=== PATIENT | female | born 1940 | race Caucasian/White ===

== ENCOUNTER 2020-03-20 12:36 | Emergency (ER) | payer MEDICARE ==
[~2020-03-20] VITALS: Ht 165.1 cm; Wt 63.6 kg
--- NOTE | 2020-03-20 13:01 | NUR ---
EARLINE [phone]
[2020-03-20 16:30] LABS: BASOPHILS % (AUTO) 0.3 % (0-1); EOSINOPHILS % (AUTO) 0 % (0-6); HEMATOCRIT 35.6 % (35.0-45.0); HEMOGLOBIN 11.6 g/dl (12.0-16.0); LYMPHOCYTES # (AUTO) 0.4 X10'3 (1.1-4.8); LYMPHOCYTES % (AUTO) 5.3 % (21-51); MEAN CORPUSCULAR HEMOGLOBIN 27.8 PG (27.0-31.0); MEAN CORPUSCULAR HGB CONC 32.6 g/dL (33.0-36.5); MEAN CORPUSCULAR VOLUME 85.3 FL (78-98); MEAN PLATELET VOLUME 7.5 FL (7.4-10.4); MONOCYTES # (AUTO) 0.2 X10'3 (0-0.9); MONOCYTES % (AUTO) 3.1 % (2-12); NEUTROPHILS # (AUTO) 6.6 X10'3 (1.8-7.7); NEUTROPHILS % (AUTO) 91.3 % (42-75); PLATELET COUNT 258 X10'3 (140-440); RED BLOOD COUNT 4.18 X10'6 (4.20-5.60); WHITE BLOOD COUNT 7.3 X10'3 (4.5-11.0)
[2020-03-20] MEDS ORDERED: TETanus/Pertussis (Acell)/Diphther VAC/PF (Tdap-Adult) 0.5ml syringe IMVAC ONE (16:35)
[2020-03-20] MEDS ORDERED: bacitracin 15gm ointment TP ONE (16:35)
[2020-03-20] MEDS ORDERED: LIDOcaine 1% W/epiNEPHrine 1:200,000 10ml vial IJ ONE (16:35)
[2020-03-20 16:52] LABS: CLARITY,URINE SLIGHTLY CLOUDY (Clear); COLOR,URINE YELLOW (Yellow); GLUCOSE, URINE NEGATIVE (Neg); KETONES,URINE NEGATIVE (Neg); LEUKOCYTE ESTERASE ,URINE NEGATIVE (Neg); NITRITES, URINE NEGATIVE (Neg); OCCULT BLOOD,URINE NEGATIVE (Neg); PROTEIN,URINE 100 mg/dl (Neg)
[2020-03-20 16:53] LABS: ALANINE AMINOTRANSFERASE 18 U/L (12-78); ALBUMIN 3.3 G/DL (3.4-5.0); ALBUMIN/GLOBULIN RATIO 0.9 (1.1-1.5); ALKALINE PHOSPHATASE 79 IU/L (46-116); ANION GAP 9 (8-16); ASPARTATE AMINO TRANSFERASE 26 U/L (10-37); BILIRUBIN,TOTAL 0.4 MG/DL (0.1-1.0); BLOOD UREA NITROGEN 22 MG/DL (7-18); BUN/CREATININE RATIO 12.9 (6.6-38.0); CALCIUM 8.3 MG/DL (8.5-10.1); CHLORIDE 104 MMOL/L (99-107); GLUCOSE 133 MG/DL (70-104); POTASSIUM 4.3 MMOL/L (3.5-5.1); SODIUM 138 MMOL/L (135-145); TOTAL CARBON DIOXIDE 25.4 MMOL/L (24-32); TOTAL PROTEIN 7.1 G/DL (6.4-8.2); eGFR 29 ML/MIN
[2020-03-20 17:04] LABS: UA COLLECTION TYPE STRAIGHT CATH; WBC,URINE 0-4 /HPF (0-4)
[2020-03-20 17:05] LABS: BACTERIA,URINE FEW /HPF (Neg); HYALINE CASTS 0-3 /LPF (NEGATIVE); MUCUS STRANDS MANY /LPF (Neg); SQUAMOUS EPITHELIAL CELL,UR NONE SEEN /LPF (FEW)
[2020-03-20] MEDS ORDERED: normal saline 1000ML IV soln IVB ONE ×2 (17:05→17:10)
[2020-03-20 18:16] VITALS: BP 104/64
== END 2020-03-20 18:50 | disposition home or self-care (01) ==
LOC: ER 12:36
DX: S09.90XA Unspecified injury of head, initial encounter (principal); R11.0 Nausea; R42 Dizziness and giddiness; Z20.3 Contact with and (suspected) exposure to rabies; W19.XXXA Unspecified fall, initial encounter; Y93.89 Activity, other specified; Y92.89 Other specified places as the place of occurrence of the external cause; Y99.8 Other external cause status
CPT/HCPCS: 36415; 70450; 70486; 71045; 72125; 80053; 81001; 82948; 84484; 85025; 90471; 90715; 99285; J7030

== ENCOUNTER 2020-05-05 06:00 | Outpatient (CLI) | payer MEDICARE ==
[~2020-05-05] VITALS: Ht 152.4 cm; Wt 62.6 kg
[2020-05-05] MEDS ORDERED: CALC250T2 PO (13:00)
[2020-05-05] MEDS ORDERED: SIMV80TA89 PO (13:00)
[2020-05-05] MEDS ORDERED: [UNRECOGNIZED DRUG - OTHER] (13:00)
[2020-05-05] MEDS ORDERED: ASPI81TA52 PO (13:00)
[2020-05-05 13:45] LABS: BASOPHILS % (AUTO) 0.5 % (0-1); EOSINOPHILS % (AUTO) 0 % (0-6); LYMPHOCYTES # (AUTO) 0.9 X10'3 (1.1-4.8); LYMPHOCYTES % (AUTO) 16.1 % (21-51); MEAN CORPUSCULAR HGB CONC 32.8 g/dL (33.0-36.5); MEAN CORPUSCULAR VOLUME 85.3 FL (78-98); MEAN PLATELET VOLUME 7.2 FL (7.4-10.4); MONOCYTES # (AUTO) 0.4 X10'3 (0-0.9); MONOCYTES % (AUTO) 7.3 % (2-12); NEUTROPHILS # (AUTO) 4.1 X10'3 (1.8-7.7); NEUTROPHILS % (AUTO) 76.1 % (42-75); PRE OP HEMATOCRIT 36.3 % (35.0-45.0); PRE OP HEMOGLOBIN 11.9 g/dL (12.0-16.0); PRE OP PLATELET COUNT 295 X10'3 (140-440); RED BLOOD COUNT 4.26 X10'6 (4.20-5.60); RED CELL DISTRIBUTION WIDTH 15.7 % (11.5-14.5)
[2020-05-05 13:57] LABS: CLARITY,URINE CLOUDY (Clear); COLOR,URINE YELLOW (Yellow); GLUCOSE, URINE NEGATIVE (Neg); KETONES,URINE NEGATIVE (Neg); LEUKOCYTE ESTERASE ,URINE SMALL (Neg); NITRITES, URINE NEGATIVE (Neg); OCCULT BLOOD,URINE TRACE-INTACT (Neg); PH,URINE 5.5 (4.8-8.0); PROTEIN,URINE 30 mg/dl (Neg)
[2020-05-05 14:00] LABS: UA COLLECTION TYPE CLN CATCH MIDSTREAM
[2020-05-05 14:14] LABS: ALBUMIN 3.2 G/DL (3.4-5.0); ALBUMIN/GLOBULIN RATIO 0.8 (1.1-1.5); ALKALINE PHOSPHATASE 63 IU/L (46-116); BLOOD UREA NITROGEN 21 MG/DL (7-18); BUN/CREATININE RATIO 14.9 (6.6-38.0); CALCIUM 9.3 MG/DL (8.5-10.1); CHLORIDE 105 MMOL/L (99-107); CREATININE 1.41 MG/DL (0.40-0.90); PRE OP ALT 18 U/L (30-65); PRE OP ANION GAP 9 (8-16); PRE OP AST 18 U/L (10-37); PRE OP BILIRUB, TOTAL 0.3 MG/DL (0.0-1.0); PRE OP GLUCOSE 104 MG/DL (70-104); PRE OP SODIUM 142 MMOL/L (135-145); TOTAL CARBON DIOXIDE 27.9 MMOL/L (24-32); TOTAL PROTEIN 7.1 G/DL (6.4-8.2); eGFR 36 ML/MIN
[2020-05-05 14:21] LABS: HYALINE CASTS 0-3 /LPF (NEGATIVE); MUCUS STRANDS MANY /LPF (Neg); SQUAMOUS EPITHELIAL CELL,UR MANY /LPF (FEW)
[2020-05-05 14:22] LABS: BACTERIA,URINE 1+ /HPF (Neg); RBC,URINE 0-2 /HPF (0-2)
[2020-05-05 14:23] LABS: TRANSITIONAL EPI CELLS,URINE FEW /HPF
[2020-05-08] MEDS ORDERED: ringers solution, lacted 1,000 ML IV SCH ×2 (05:00→08:30)
[2020-05-08] MEDS ORDERED: ceFOXitin 2GM-NS 100mL ADDvant 100 ML IV ONE (05:30)
[2020-05-08] MEDS ORDERED: famotidine 20mg tablet PO ONE (05:30)
[2020-05-08] MEDS ORDERED: morphine 4 MG/ML inj SYRINge IV PRN (08:30)
[2020-05-08] MEDS ORDERED: ondansetron/PF 4mg/2ml inj IV PRN (08:30)
[2020-05-08] MEDS ORDERED: proCHLORperazine 10 MG/2 ml inj IV PRN (08:30)
[2020-05-08] MEDS ORDERED: meperidine/PF 25mg/ml syringe IV PRN ×3 (08:30)
[2020-05-08] MEDS ORDERED: morphine 2 MG/ML inj. syringe IV PRN (08:30)
--- NOTE | 2020-05-08 09:25 | NUR ---
PT WAS FOUND TO HAVE AN INDETERMINATE RESULT ON HER COVID SWAB DONE IN PREOPS. A RAPID COVID SWAB WAS DONE UPON ADMISSION, IT WAS POSITIVE. OR CHARGE NURSE AND INFECTION CONTROL WERE NOTIFIED. PT WAS SENT HOME WITH DIRECTIONS TO QUARANTINE FOR 10-14 DAYS AND MONITOR HERSELF AND HER HOUSEMATES FOR ANY COVID SX. PIV DCD CATH INTACT. DCD HOME IN STABLE CONDITION, ESCORTED TO CAR BY STAFF.
== END 2020-05-05 23:00 | disposition home or self-care (01) ==
LOC: PRE-OP 06:00 → PAS 05-08 07:02 → EDSTATUS 05-08 09:45 → PAS 05-08 10:00
PROVIDERS: ATTEND Obstetrics & Gynecology Obstetrics
DX: Z01.812 Encounter for preprocedural laboratory examination (principal); Z20.822 Contact with and (suspected) exposure to COVID-19
CPT/HCPCS: 36415; 80053; 81001; 82948; 85025; 86885; 86900; 86901; 87635; C9803; U0003; J0694; J7120

== ENCOUNTER 2020-07-10 08:05 | Day surgery (SDC) | payer MEDICARE ==
[2020-07-04 11:57] LABS: CLARITY,URINE SLIGHTLY CLOUDY (Clear); COLOR,URINE YELLOW (Yellow); GLUCOSE, URINE NEGATIVE (Neg); KETONES,URINE TRACE mg/dl (Neg); LEUKOCYTE ESTERASE ,URINE SMALL (Neg); NITRITES, URINE NEGATIVE (Neg); OCCULT BLOOD,URINE NEGATIVE (Neg); PH,URINE 5.5 (4.8-8.0); PROTEIN,URINE 30 mg/dl (Neg); UROBILINOGEN,URINE 0.2 E.U/dL (0.2-1.0)
[2020-07-04 11:59] LABS: BASOPHILS % (AUTO) 0.4 % (0-1); EOSINOPHILS % (AUTO) 0 % (0-6); LYMPHOCYTES # (AUTO) 0.9 X10'3 (1.1-4.8); LYMPHOCYTES % (AUTO) 16.7 % (21-51); MEAN CORPUSCULAR HGB CONC 33.5 g/dL (33.0-36.5); MEAN CORPUSCULAR VOLUME 86.7 FL (78-98); MEAN PLATELET VOLUME 7.3 FL (7.4-10.4); MONOCYTES # (AUTO) 0.3 X10'3 (0-0.9); MONOCYTES % (AUTO) 5.9 % (2-12); NEUTROPHILS # (AUTO) 4.1 X10'3 (1.8-7.7); PRE OP HEMATOCRIT 37.5 % (35.0-45.0); PRE OP HEMOGLOBIN 12.6 g/dL (12.0-16.0); PRE OP PLATELET COUNT 299 X10'3 (140-440); RED BLOOD COUNT 4.33 X10'6 (4.20-5.60); RED CELL DISTRIBUTION WIDTH 15.1 % (11.5-14.5)
[2020-07-04 12:03] LABS: UA COLLECTION TYPE NON-SPECIFIED
[2020-07-04 12:04] LABS: MUCUS STRANDS MODERATE /LPF (Neg)
[2020-07-04 12:05] LABS: SQUAMOUS EPITHELIAL CELL,UR MODERATE /LPF (FEW)
[2020-07-04 12:06] LABS: BACTERIA,URINE FEW /HPF (Neg); RBC,URINE 0-2 /HPF (0-2); TRANSITIONAL EPI CELLS,URINE FEW /HPF
[2020-07-04 12:11] LABS: PRE OP PROTIME 10.4 SECONDS (9.0-12.0)
[2020-07-04 12:14] LABS: ALBUMIN 3.8 G/DL (3.4-5.0); ALBUMIN/GLOBULIN RATIO 1.1 (1.1-1.5); ALKALINE PHOSPHATASE 68 IU/L (46-116); BLOOD UREA NITROGEN 21 MG/DL (7-18); BUN/CREATININE RATIO 12.4 (6.6-38.0); CALCIUM 9.1 MG/DL (8.5-10.1); CHLORIDE 108 MMOL/L (99-107); PRE OP ALT 15 U/L (30-65); PRE OP ANION GAP 10 (8-16); PRE OP AST 21 U/L (10-37); PRE OP BILIRUB, TOTAL 0.3 MG/DL (0.0-1.0); PRE OP GLUCOSE 112 MG/DL (70-104); PRE OP POTASSIUM 4.1 MMOL/L (3.4-5.1); PRE OP SODIUM 148 MMOL/L (135-145); TOTAL CARBON DIOXIDE 29.8 MMOL/L (24-32); TOTAL PROTEIN 7.2 G/DL (6.4-8.2); eGFR 29 ML/MIN
[2020-07-10] VITALS (15 sets, daily range): BP systolic 104–130; BP diastolic 49–75
[~2020-07-10] VITALS: Ht 165.1 cm; Wt 64.0 kg
[~2020-07-10 08:05] MED LIST: ASPI81TA52 PO; CALC250T2 PO; SIMV80TA89 PO; [UNRECOGNIZED DRUG - OTHER]; ceFOXitin 2GM-NS 100mL ADDvant 100 ML IV ONE; famotidine 20mg tablet PO ONE; meperidine/PF 25mg/ml syringe IV PRN; morphine 2 MG/ML inj. syringe IV PRN; morphine 4 MG/ML inj SYRINge IV PRN; ondansetron/PF 4mg/2ml inj IV PRN; proCHLORperazine 10 MG/2 ml inj IV PRN; ringers solution, lacted 1,000 ML IV SCH
[2020-07-10] MEDS: ringers solution, lacted 1,000 ML IV SCH ×4 (08:33→21:10)
[2020-07-10] MEDS ORDERED: clindamycin phosphate 40gm vag cream ONE (10:27)
[2020-07-10] MEDS ORDERED: BUPIVAcaine/PF 2.5 mg/ml (0.25%) 30ml vial ONE (10:27)
[2020-07-10] MEDS ORDERED: neomy sulf/polymyxin B sulf. GU irrigation 1ml amp IR ONE (10:28)
[2020-07-10] MEDS ORDERED: vasoPRESSIN 20 units/ml inj. ONE (10:28)
[2020-07-10] MEDS ORDERED: fentaNYL /PF 50mcg/ml 5ml ampule ONE (10:50)
[2020-07-10] MEDS ORDERED: midazolam 1 mg/ML 2ml injection ONE (10:50)
[2020-07-10] MEDS ORDERED: propofol inj 20 ML IV ONE (10:52)
[2020-07-10] MEDS ORDERED: LIDOcaine 2% (20mg/ml) 5ml vial ONE (10:52)
[2020-07-10] MEDS ORDERED: ondansetron/PF 4mg/2ml inj ONE (11:40)
[2020-07-10] MEDS ORDERED: HYDROcodone/acetaminophen 10/325mg tab PO PRN ×2 (13:10)
[2020-07-10] MEDS ORDERED: magnesium hydroxide 30ml (MOM) UD suspension PO PRN (13:10)
[2020-07-10] MEDS ORDERED: temazepam 15mg capsule PO PRN (13:10)
[2020-07-10] MEDS ORDERED: normal saline 500ml IV soln 500 ML IV PRN (13:10)
[2020-07-10] MEDS ORDERED: diphenhydrAMINE 50 mg/ml inj IV PRN (13:10)
[2020-07-10] MEDS ORDERED: ondansetron/PF 4mg/2ml inj IV PRN (13:10)
[2020-07-10] MEDS ORDERED: LORazepam 2 mg/ml vial IV PRN (13:10)
[2020-07-10] MEDS ORDERED: metoclopramide 5 mg/ml inj IV PRN (13:10)
[2020-07-10] MEDS ORDERED: acetaminophen 1,000mg/100ml IV 100 ML IV ONE (13:16)
--- NOTE | 2020-07-10 13:30 | NUR ---
Received from OR via BED, accompanied by Anesthesiologist DR FRANCO and report given by Anesthesiologist. PATIENT WAKING UP SLOWLY, MOVING AROUND A BIT IN BED, BUT DENIES ANY PAIN, NO OTHER S/S OF PAIN, V/S WNL, SCD ON, 20G TO LUE, LAP SURGICAL SITES X3 TO ABDOMEN DERMABONDED-CDI. PT HAS F/C IN PLACE-DRAINING YELLOW URINE
--- NOTE | 2020-07-10 13:46 | NUR ---
PT CALM NOW, RESTING QUIETLY, VSS WITH NO PAIN COMPLAINTS
--- NOTE | 2020-07-10 14:30 | NUR ---
PT RESTING QUIETLY-AWAKE ALERT, DENIES PAIN NEEDED ANY MEDICATING, VSS, DERMABOND TO ABD X3 SITES-CDI, F/C DRAINING, PIV RUNNING-LR AT 100ML/HR. DAUGHTER CALLED TO LET KNOW SHE WAS BEING MOVED TO ROOM, REPORT CALLED TO TRACK LABORER - JUAN, ALL QUESTIONS ANSWERED. PT TAKEN WITH ALL BELONGINGS UP TO ROOM 346A, BED LOW AND LOCKED, CALL LIGHT IN HAND, HOOKED UP TO MONITORS.
--- NOTE | 2020-07-10 14:43 | NUR ---
Pt. arrive on floor. VS stable. Pt. comfortable.
--- NOTE | 2020-07-10 18:08 | NUR ---
REPORT GIVEN TO BRIA VALLADARES.
--- NOTE | 2020-07-10 18:16 | NUR ---
Patient in room [facility] 346. I have received report from Ursula VALLADARES and had the opportunity to ask questions and assume patient care. Bryce VALLADARES
[2020-07-10] MEDS: docusate sod 100mg capsule PO SCH (20:00)
[2020-07-11] VITALS: BP 110/55
[2020-07-11] MEDS: ringers solution, lacted 1,000 ML IV SCH (05:10)
[2020-07-11 06:16] LABS: BASOPHILS % (AUTO) 0.1 % (0-1); EOSINOPHILS % (AUTO) 0 % (0-6); HEMATOCRIT 33.8 % (35.0-45.0); HEMOGLOBIN 11.3 g/dl (12.0-16.0); LYMPHOCYTES % (AUTO) 8.2 % (21-51); MEAN CORPUSCULAR HEMOGLOBIN 28.7 PG (27.0-31.0); MEAN CORPUSCULAR HGB CONC 33.4 g/dL (33.0-36.5); MEAN CORPUSCULAR VOLUME 85.9 FL (78-98); MEAN PLATELET VOLUME 7.8 FL (7.4-10.4); MONOCYTES # (AUTO) 0.6 X10'3 (0-0.9); MONOCYTES % (AUTO) 4.8 % (2-12); NEUTROPHILS # (AUTO) 10.6 X10'3 (1.8-7.7); NEUTROPHILS % (AUTO) 86.9 % (42-75); PLATELET COUNT 253 X10'3 (140-440); RED BLOOD COUNT 3.93 X10'6 (4.20-5.60); RED CELL DISTRIBUTION WIDTH 14.3 % (11.5-14.5); WHITE BLOOD COUNT 12.1 X10'3 (4.5-11.0)
--- NOTE | 2020-07-11 06:26 | NUR ---
Problems reprioritized. Patient report given, questions answered & plan of care reviewed with Samuel VALLADARES. Bryce VALLADARES
[2020-07-11 06:41] LABS: ANION GAP 9 (8-16); BLOOD UREA NITROGEN 19 MG/DL (7-18); BUN/CREATININE RATIO 12.8 (6.6-38.0); CALCIUM 8.5 MG/DL (8.5-10.1); CHLORIDE 107 MMOL/L (99-107); CREATININE 1.48 MG/DL (0.40-0.90); GLUCOSE 108 MG/DL (70-104); POTASSIUM 4.9 MMOL/L (3.5-5.1); SODIUM 141 MMOL/L (135-145); TOTAL CARBON DIOXIDE 24.6 MMOL/L (24-32); eGFR 34 ML/MIN
[2020-07-11] MEDS: docusate sod 100mg capsule PO SCH (07:37)
[2020-07-11 07:51] VITALS: BP 95/46
[2020-07-11] MEDS ORDERED: atorvastatin 20mg tablet PO SCH (08:00)
[2020-07-11] MEDS ORDERED: aspirin 81mg tablet.DR PO SCH (08:00)
[2020-07-11 11:00] VITALS: BP 102/44
== END 2020-07-11 13:58 | disposition home or self-care (01) ==
LOC: PAS 08:05 → SUR 3N 13:08 → PAS 07-11 13:58
PROVIDERS: ATTEND Obstetrics & Gynecology Obstetrics
DX: D26.1 Other benign neoplasm of corpus uteri (principal); N83.201 Unspecified ovarian cyst, right side; N83.8 Other noninflammatory disorders of ovary, fallopian tube and broad ligament; R19.00 Intra-abdominal and pelvic swelling, mass and lump, unspecified site; R93.89 Abnormal findings on diagnostic imaging of other specified body structures; N84.0 Polyp of corpus uteri; Z79.01 Long term (current) use of anticoagulants; Z79.899 Other long term (current) drug therapy
CPT/HCPCS: 36415; 58552; 80048; 80053; 81001; 82948; 85025; 85610; 85730; 86885; 86900; 86901; 87088; J0131; J0694; J2001; J2250; J2405; J2704; J3010; J3490; J7120; 88307; 88311; A4314; A4618; A7000; G0378

== ENCOUNTER 2021-12-16 11:06 | Day surgery (SDC) | payer MEDICARE ==
[~2021-12-16] VITALS: Ht 165.1 cm; Wt 61.6 kg
[2021-12-16] VITALS (8 sets, daily range): BP systolic 90–102; BP diastolic 28–60
[~2021-12-16 11:06] MED LIST changes: -ceFOXitin 2GM-NS 100mL ADDvant 100 ML IV ONE; -famotidine 20mg tablet PO ONE; -meperidine/PF 25mg/ml syringe IV PRN; -morphine 2 MG/ML inj. syringe IV PRN; -morphine 4 MG/ML inj SYRINge IV PRN; -ondansetron/PF 4mg/2ml inj IV PRN; -proCHLORperazine 10 MG/2 ml inj IV PRN; -ringers solution, lacted 1,000 ML IV SCH
[2021-12-16] MEDS ORDERED: DAPA10TA PO (11:40)
[2021-12-16] MEDS ORDERED: LIDOcaine 1% 30ml preserv. free vial SQ ONE (11:55)
== END 2021-12-16 14:00 | disposition home or self-care (01) ==
LOC: SSTAY O 11:06
PROVIDERS: ATTEND Radiology Diagnostic Radiology
DX: C07 Malignant neoplasm of parotid gland (principal); E78.00 Pure hypercholesterolemia, unspecified; Z79.899 Other long term (current) drug therapy; Z79.82 Long term (current) use of aspirin; Z98.890 Other specified postprocedural states
CPT/HCPCS: 10005; 88341; 88342; J7030; 20206; 76942; 88173; 88305

== ENCOUNTER 2022-08-06 07:59 | Day surgery (SDC) | payer MEDICARE ==
[~2022-08-06] VITALS: Ht 165.1 cm; Wt 54.0 kg
[~2022-08-06 07:59] MED LIST changes: +DAPA10TA PO
[2022-08-06] MEDS ORDERED: PILO5TAB10 PO (08:37)
[2022-08-06] MEDS ORDERED: OMEG-167 PO (08:37)
[2022-08-06] MEDS ORDERED: CYAN10007 SQ (08:37)
[2022-08-06 09:00] VITALS: BP 114/77
[2022-08-06 10:20] VITALS: BP 110/71
--- NOTE | 2022-08-06 10:25 | NUR ---
Dr. Townsend and IR nurses in room performing submental lymph needle biopsy.
[2022-08-06 10:30] VITALS: BP 103/59
== END 2022-08-06 11:00 | disposition home or self-care (01) ==
LOC: SSTAY O 07:59
PROVIDERS: ATTEND Radiology Vascular & Interventional Radiology
DX: R59.0 Localized enlarged lymph nodes (principal); C44.329 Squamous cell carcinoma of skin of other parts of face; E78.00 Pure hypercholesterolemia, unspecified; Z98.890 Other specified postprocedural states; Z79.899 Other long term (current) drug therapy; Z79.82 Long term (current) use of aspirin
CPT/HCPCS: 10005; 38505; 76942; 88184; 88185

== ENCOUNTER 2023-01-24 12:37 | Emergency (ER) | payer MEDICARE ==
[~2023-01-24] VITALS: Ht 165.1 cm; Wt 52.0 kg
[~2023-01-24 12:37] MED LIST changes: +CYAN10007 SQ; +OMEG-167 PO; +PILO5TAB10 PO
[2023-01-24 13:16] VITALS: BP 110/66; PULSE 96; RESP 18; TEMP 98.7; O2SAT 96
[2023-01-24 14:01] LABS: BASOPHILS % (AUTO) 0.4 % (0-1); EOSINOPHILS % (AUTO) 0 % (0-6); HEMATOCRIT 45.3 % (35.0-45.0); LYMPHOCYTES # (AUTO) 0.4 X10'3 (1.1-4.8); LYMPHOCYTES % (AUTO) 3.8 % (21-51); MEAN CORPUSCULAR HEMOGLOBIN 29.5 PG (27.0-31.0); MEAN CORPUSCULAR HGB CONC 33.1 g/dL (33.0-36.5); MEAN CORPUSCULAR VOLUME 89.3 FL (78-98); MEAN PLATELET VOLUME 7.9 FL (7.4-10.4); MONOCYTES # (AUTO) 0.4 X10'3 (0-0.9); MONOCYTES % (AUTO) 4.5 % (2-12); NEUTROPHILS # (AUTO) 8.6 X10'3 (1.8-7.7); NEUTROPHILS % (AUTO) 91.3 % (42-75); PLATELET COUNT 457 X10'3 (140-440); RED BLOOD COUNT 5.08 X10'6 (4.20-5.60); RED CELL DISTRIBUTION WIDTH 14.6 % (11.5-14.5); WHITE BLOOD COUNT 9.4 X10'3 (4.5-11.0)
[2023-01-24 14:10] LABS: ALANINE AMINOTRANSFERASE 399 U/L (12-78); ALBUMIN 2.9 G/DL (3.4-5.0); ALBUMIN/GLOBULIN RATIO 0.6 (1.1-1.5); ALKALINE PHOSPHATASE 94 IU/L (46-116); ANION GAP 7 (8-16); ASPARTATE AMINO TRANSFERASE 504 U/L (10-37); BILIRUBIN,TOTAL 0.4 MG/DL (0.1-1.0); BLOOD UREA NITROGEN 46 MG/DL (7-18); BUN/CREATININE RATIO 34.8 (10.0-20.0); CHLORIDE 102 MMOL/L (99-107); CREATININE 1.32 MG/DL (0.40-0.90); GLUCOSE 116 MG/DL (70-104); POTASSIUM 4.1 MMOL/L (3.5-5.1); SODIUM 141 MMOL/L (135-145); TOTAL CARBON DIOXIDE 31.6 MMOL/L (24-32); TOTAL PROTEIN 7.5 G/DL (6.4-8.2); eCRCL 26 ML/MIN; eGFR 38 ML/MIN
== END 2023-01-24 22:12 | disposition home or self-care (01) ==
LOC: ER 12:38
DX: K80.20 Calculus of gallbladder without cholecystitis without obstruction (principal); R53.81 Other malaise; R53.83 Other fatigue; Z79.82 Long term (current) use of aspirin; Z79.899 Other long term (current) drug therapy
CPT/HCPCS: 36415; 71045; 76700; 80053; 82140; 83690; 85025; 99284